=== PATIENT | male | born 1955 | race Caucasian/White ===

== ENCOUNTER 2020-09-02 12:54 | Inpatient (IN) | payer OTHER ==
[~2020-09-02] VITALS: Ht 177.8 cm; Wt 72.6 kg
[2020-09-02 13:15] LABS: BASOPHILS ABSOLUTE AUTO 0.06 K/mm3 (0.00-0.23); BASOPHILS PERCENT AUTO 1 % (0-2); EOSINOPHILS ABSOLUTE AUTO 0.05 K/mm3 (0.00-0.68); EOSINOPHILS PERCENT AUTO 0 % (0-6); Hematocrit 47.9 % (37.0-53.0); Hemoglobin 16.1 g/dL (13.5-17.5); IMMATURE GRAN ABSOLUTE AUTO 0.05 K/mm3 (0.00-0.10); IMMATURE GRAN PERCENT AUTO 0 % (0-1); LYMPHOCYTES ABSOLUTE AUTO 1.19 K/mm3 (0.84-5.20); LYMPHOCYTES PERCENT AUTO 10 % (21-46); MONOCYTES ABSOLUTE AUTO 1.11 K/mm3 (0.16-1.47); MONOCYTES PERCENT AUTO 10 % (4-13); Mean Corpuscular HGB 31.2 pg (26.0-34.0); Mean Corpuscular HGB Conc 33.6 g/dL (31.5-36.5); Mean Corpuscular Volume 93 fL (80-100); Mean Platelet Volume 11.9 fL (9.1-12.4); NEUTROPHILS ABSOLUTE AUTO 9.09 K/mm3 (1.96-9.15); NEUTROPHILS PERCENT AUTO 79 % (41-73); Platelet Count 219 K/mm3 (150-400); RDW Coefficient Variation 13.3 % (11.7-14.2); RDW Standard Deviation 45.6 fL (35.1-46.3); Red Blood Cell Count 5.16 M/mm3 (4.30-5.90); White Blood Cell Count 11.55 K/mm3 (4.00-11.30)
[2020-09-02] MEDS ORDERED: Acetaminophen325 M1 PO (13:20)
[2020-09-02] MEDS ORDERED: TAMS.4ER PO (13:21)
[2020-09-02] MEDS ORDERED: POLYETHYLENE G500 G1 PO (13:22)
[2020-09-02] MEDS ORDERED: LIDO700A20 TOP (13:22)
[2020-09-02 13:32] LABS: Source, Urine Clean Catch
[2020-09-02 13:41] LABS: Alanine Aminotransfer (ALT/SGP 31 U/L (12-78); Albumin, Blood 2.9 g/dL (3.4-5.0); Albumin/Globulin Ratio 0.6 (0.8-1.8); Alk Phos 104 U/L (50-136); Anion Gap 4 mmol/L (6-16); Aspartate Aminotrans (AST/SGOT 23 U/L (12-37); Bilirubin, Total 1.8 mg/dL (0.1-1.0); Blood Urea Nitrogen 29 mg/dL (8-24); Bun/Creatinine Ratio 44.6 (12.0-20.0); CO2, Blood 27 mmol/L (21-32); Calcium, Blood 9.3 mg/dL (8.5-10.1); Chloride, Blood 121 mmol/L (98-108); Creatinine, Blood 0.65 mg/dL (0.60-1.20); Ferritin, Serum 896 ng/mL (26-388); Globulin, Blood 4.6 g/dL (2.2-4.0); Glomerular Filtration Rate >60 (60-); Glucose, Blood 146 mg/dL (70-99); Potassium, Blood 4.1 mmol/L (3.5-5.5); Sodium, Blood 152 mmol/L (136-145); Total Protein, Blood 7.5 g/dL (6.4-8.2)
[2020-09-02 13:44] LABS: Appearance, Urine Hazy (Clear); Blood, Urine 4+ (Neg); Color, Urine Yellow (P-Yellow); Glucose Qualitative, Urine Neg (Neg); Ketones, Urine 2+ (Neg); Leukocyte Esterase, Urine 3+ (Neg); Nitrite, Urine Pos (Neg); Protein, Urine 3+ (Neg); Urobilinogen, Urine 2+ (Normal)
[2020-09-02 13:56] LABS: Bilirubin, Urine 1+ (Neg); Red Blood Cells, Urine TNTC /hpf (0-2); White Blood Cells, Urine TNTC /hpf (0-5)
[2020-09-02 13:57] LABS: Bacteria Many /hpf; Squamous Epithelial Cells Rare /hpf (Few)
[2020-09-02] MEDS ORDERED: PRED20 PO (15:29)
[2020-09-02 16:03] LABS: Influenza A, PCR NEGATIVE (NEGATIVE); Influenza B, PCR NEGATIVE (NEGATIVE); Resp Syncytial Virus, PCR NEGATIVE (NEGATIVE)
[2020-09-02 16:13] LABS: SARS-Cov-2 (COVID-19) PCR, MMC POSITIVE (NEGATIVE)
--- NOTE | 2020-09-02 18:36 | NUR ---
PT ARRIVED TO UNIT AT 181. PT IS UNRESPONSIVE AT THIS TIME. PT TURNED AND CHANGED AND SETTLED INTO BED. RAILS UP AND BED ALARM IN PLACE. PT IS VISIBLE FROM DOOR WINDOW. WILL CONTINUE TO MONITOR.
--- NOTE | 2020-09-02 20:20 | NUR ---
ASSUMPTION OF CARE. MADHU IS VERY QUITE BUT AWAKE. ORIENTED TO SELF ONLY. FOLLOWS DIRECTION WELL. UNABLE TO ANSWER QUESTIONS. VERY TIRED. FLUSHED IN THE FACE. SKIN WARM. VS WNL, AFEBRILE AT THIS TIME. ON RA SATS >90% OCCATIONAL COUGH, NO PRODUCTION. SKIN DOES HAVE OLD PRESSURE ULCER TO BOTTOM BUT HEALED, REST OF SKIN INTACT. HR TACHY IN THE LOW 100'S. IV IN LEFT HAND IS FOLLING OUT, REMOVED DRESSING AND FLUSHED WELL, NEW DRESSING APPLIED. ATTENDS DRY. BED ALARM IS ON. WILL START FLUIDS AND CONTINUE TO MONITOR.
[2020-09-03] MEDS ORDERED: Acetaminophen325 M1 PO (00:18)
[2020-09-03 04:59] LABS: BASOPHILS ABSOLUTE AUTO 0.05 K/mm3 (0.00-0.23); BASOPHILS PERCENT AUTO 1 % (0-2); EOSINOPHILS PERCENT AUTO 2 % (0-6); Hematocrit 46.5 % (37.0-53.0); Hemoglobin 14.8 g/dL (13.5-17.5); IMMATURE GRAN ABSOLUTE AUTO 0.02 K/mm3 (0.00-0.10); IMMATURE GRAN PERCENT AUTO 0 % (0-1); LYMPHOCYTES ABSOLUTE AUTO 1.18 K/mm3 (0.84-5.20); LYMPHOCYTES PERCENT AUTO 13 % (21-46); MONOCYTES ABSOLUTE AUTO 0.77 K/mm3 (0.16-1.47); MONOCYTES PERCENT AUTO 9 % (4-13); Mean Corpuscular HGB 30.3 pg (26.0-34.0); Mean Corpuscular HGB Conc 31.8 g/dL (31.5-36.5); Mean Corpuscular Volume 95 fL (80-100); NEUTROPHILS ABSOLUTE AUTO 6.86 K/mm3 (1.96-9.15); NEUTROPHILS PERCENT AUTO 76 % (41-73); Platelet Count 228 K/mm3 (150-400); RDW Coefficient Variation 13.6 % (11.7-14.2); RDW Standard Deviation 47.9 fL (35.1-46.3); Red Blood Cell Count 4.88 M/mm3 (4.30-5.90); White Blood Cell Count 9.08 K/mm3 (4.00-11.30)
[2020-09-03 05:15] LABS: Alanine Aminotransfer (ALT/SGP 27 U/L (12-78); Albumin, Blood 2.6 g/dL (3.4-5.0); Albumin/Globulin Ratio 0.6 (0.8-1.8); Alk Phos 94 U/L (50-136); Anion Gap 3 mmol/L (6-16); Aspartate Aminotrans (AST/SGOT 17 U/L (12-37); Bilirubin, Total 1.9 mg/dL (0.1-1.0); Blood Urea Nitrogen 24 mg/dL (8-24); Bun/Creatinine Ratio 41.9 (12.0-20.0); CO2, Blood 28 mmol/L (21-32); Calcium, Blood 8.8 mg/dL (8.5-10.1); Chloride, Blood 123 mmol/L (98-108); Creatinine, Blood 0.57 mg/dL (0.60-1.20); Globulin, Blood 4.3 g/dL (2.2-4.0); Glomerular Filtration Rate >60 (60-); Glucose, Blood 97 mg/dL (70-99); Magnesium, Blood 2.2 mg/dL (1.6-2.4); Potassium, Blood 3.4 mmol/L (3.5-5.5); Sodium, Blood 154 mmol/L (136-145); Total Protein, Blood 6.9 g/dL (6.4-8.2)
--- NOTE | 2020-09-03 05:58 | NUR ---
SHIFT SUMMARY: MADHU WAS ADMITTED YESTERDAY FOR SEPSIS UTI, COVID POSITIVE. HE IS ALERT AT TIMES WILL MUMBLE A FEW WORDS, DID ANSWER YES AND NO QUESTIONS SOME TIMES. MOST OF THE TIME HE JUST STARED OFF RAISING HIS ARMS UP IN THE AIR LIKE HE WAS GRABBING SOMETHING. HE HAS BEEN SLEEPING OFF AND ON AND WHEN HE DOES HE HAS 30 SECOND PAUSES IN HIS BREATHING, SLEEP APNEA BUT NOTHING IN HIS CHART ABOUT IT. HE DOES WAKE UP TO HIS NAME WHEN THIS OCCURS. INCONTIENT OF URINE, DARK YELLOW VERY STRONG ODOR. 1/2 NS STARTED, SODIUM 154 THIS AM. POTASSIUM DECREASING TO 3.4. LUNG SOUNDS ARE DIMINISHED. NO COHERENT ENOUGH TO USE THE CALL LIGHT SO BED ALARM IS ON. TACHYCARDIC IN 110'S ALL NIGHT BUT AFEBRILE. NO OTHER CHANGES TO REPORT THIS SHIFT.
--- NOTE | 2020-09-03 16:56 | NUR ---
SHIFT SUMMARY PT HAS BEEN AWAKE ALL SHIFT. PT ABLE TO SPEAK SHORT SENTENCES AND MUMBLES AT TIMES. PT STILL CONFUSED AND DOESN'T ANSWER QUESTIONS APPROPRIATELY. PT VOIDING WELL, INCONTINENT. PULLED IV OUT THIS AM AND NEW IV PLACED AND WRAPPED TO PROTECT LINE. IVF INFUSING WITHOUT DIFFICULTY. PT HAS HAD NO ACUTE CHANGES AT THIS TIME. CALL LIGHT IN REACH AND BED ALARM ON FOR SAFETY. WILL [id number] TO MONITOR.
--- NOTE | 2020-09-04 04:30 | NUR ---
SHIFT SUMMARY ASSUMED CARE OF PT AT 1900. PT IS A/OX1. PT HAS MUMBLED AND SLURRED SPEECH. HEART SOUNDS REGULAR, LUNG SOUNDS DIMINISHED. PT WAS INCONTIENT T/O THE NIGHT. PT HAS SMAL RED DOT ON COCCYX, PT ROTATED Q4 ON PILLOWS. PT HAD HARD TIME DRINKING FROM STRAW SO HE WAS GIVEN A SIPPY CUP, WHICH HE WAS ABLE TO CONTROL BETTER. PT MUSCLES ARE VERY STIFF AND PT HAS A HARD TIME MOVING HIS EXTRMITIES. NO ACUTE EVENTS DURING THE NIGHT. PT SLEPT T/O THE NIGHT. CALL LIGHT IN REACH, BED IN LOWEST POSTION.
[2020-09-04 05:14] LABS: BASOPHILS ABSOLUTE AUTO 0.04 K/mm3 (0.00-0.23); BASOPHILS PERCENT AUTO 1 % (0-2); EOSINOPHILS PERCENT AUTO 6 % (0-6); Hematocrit 39.8 % (37.0-53.0); Hemoglobin 12.9 g/dL (13.5-17.5); IMMATURE GRAN ABSOLUTE AUTO 0.02 K/mm3 (0.00-0.10); IMMATURE GRAN PERCENT AUTO 0 % (0-1); LYMPHOCYTES ABSOLUTE AUTO 1.04 K/mm3 (0.84-5.20); LYMPHOCYTES PERCENT AUTO 15 % (21-46); MONOCYTES ABSOLUTE AUTO 0.72 K/mm3 (0.16-1.47); MONOCYTES PERCENT AUTO 10 % (4-13); Mean Corpuscular HGB 30.7 pg (26.0-34.0); Mean Corpuscular HGB Conc 32.4 g/dL (31.5-36.5); Mean Corpuscular Volume 95 fL (80-100); NEUTROPHILS ABSOLUTE AUTO 4.85 K/mm3 (1.96-9.15); NEUTROPHILS PERCENT AUTO 69 % (41-73); Platelet Count 200 K/mm3 (150-400); RDW Coefficient Variation 13.3 % (11.7-14.2); RDW Standard Deviation 46.4 fL (35.1-46.3); White Blood Cell Count 7.07 K/mm3 (4.00-11.30)
[2020-09-04 05:45] LABS: Alanine Aminotransfer (ALT/SGP 21 U/L (12-78); Albumin, Blood 2.1 g/dL (3.4-5.0); Albumin/Globulin Ratio 0.6 (0.8-1.8); Alk Phos 74 U/L (50-136); Anion Gap 5 mmol/L (6-16); Aspartate Aminotrans (AST/SGOT 19 U/L (12-37); Bilirubin, Total 1.3 mg/dL (0.1-1.0); Blood Urea Nitrogen 18 mg/dL (8-24); Bun/Creatinine Ratio 38.4 (12.0-20.0); CO2, Blood 27 mmol/L (21-32); Calcium, Blood 8.3 mg/dL (8.5-10.1); Chloride, Blood 119 mmol/L (98-108); Creatinine, Blood 0.47 mg/dL (0.60-1.20); Globulin, Blood 3.8 g/dL (2.2-4.0); Glomerular Filtration Rate >60 (60-); Glucose, Blood 118 mg/dL (70-99); Potassium, Blood 3.4 mmol/L (3.5-5.5); Sodium, Blood 151 mmol/L (136-145); Total Protein, Blood 5.9 g/dL (6.4-8.2)
--- NOTE | 2020-09-04 14:56 | NUR ---
Case Conference Note Spoke with Bedside RN Kori and discussed case. Pt transport has arrived to transport Pt to [place]. Reviewed arron of care and discussed concerns. Called and spoke with Junior Technical Writer Rekha. Discussed case with Rekha reports being in contact with Pt's family. Pt's brother Clayton is CLARA. Clayton's number is listed on Pt's Facesheet. Supportive call to Clayton. Provided update and reviewed plan of care. Listened as Clayton reports Pt has been experiencing significant confusion since May. Pt has acute health events leading up to his current confusion. Answered question and offered therapeutic listening. Discussed Pt's code status with Clayton reporting Pt's wishes to be Full Code. Clayton expresses appreciation of call and is requesting for hospitalist to call him. Called Dr Man and relayed Clayton's request. Palliative Care will remain available.
--- NOTE | 2020-09-04 18:57 | NUR ---
SHIFT SUMMARY PT SLEPT MORE TODAY THAN YESTERDAY. NO ACUTE CHANGES. PT/OT TRIED WORKING WITH PT THIS AFTERNOON. IVF INFUSING PER MED ORDERS. CT OF HEAD DONE, SEE IMAGES. REPORT GIVEN TO LEONORA RN. BED ALARM ON FOR SAFETY.
[2020-09-05 04:52] LABS: BASOPHILS ABSOLUTE AUTO 0.05 K/mm3 (0.00-0.23); BASOPHILS PERCENT AUTO 1 % (0-2); EOSINOPHILS PERCENT AUTO 7 % (0-6); Hematocrit 39.5 % (37.0-53.0); IMMATURE GRAN ABSOLUTE AUTO 0.02 K/mm3 (0.00-0.10); IMMATURE GRAN PERCENT AUTO 0 % (0-1); LYMPHOCYTES ABSOLUTE AUTO 0.97 K/mm3 (0.84-5.20); LYMPHOCYTES PERCENT AUTO 16 % (21-46); MONOCYTES ABSOLUTE AUTO 0.63 K/mm3 (0.16-1.47); MONOCYTES PERCENT AUTO 11 % (4-13); Mean Corpuscular HGB 30.7 pg (26.0-34.0); Mean Corpuscular HGB Conc 32.9 g/dL (31.5-36.5); Mean Corpuscular Volume 93 fL (80-100); Mean Platelet Volume 11.7 fL (9.1-12.4); NEUTROPHILS ABSOLUTE AUTO 3.88 K/mm3 (1.96-9.15); NEUTROPHILS PERCENT AUTO 65 % (41-73); Platelet Count 208 K/mm3 (150-400); RDW Standard Deviation 44.1 fL (35.1-46.3); Red Blood Cell Count 4.24 M/mm3 (4.30-5.90); White Blood Cell Count 5.95 K/mm3 (4.00-11.30)
--- NOTE | 2020-09-05 05:31 | NUR ---
SHIFT SUMMARY ASSUMED CARE OF PT AT 1900. PT IS ALERT BUT NOT ORIENTED. HEART SOUNDS REUGLAR, LUNG SOUNDS DIMINISHED. PT WAS INCONTIENT T/O THE NIGHT. URINE IS VERY DARK AND FOUL SMELLING. PT HAD SMALL BM. NO ACUTE CHANGES THIS SHIFT. PT SLEPT T/O THE NIGHT. CALL LIGHT IN REACH, BED IN LOWEST POSITION.
[2020-09-05 05:38] LABS: Alanine Aminotransfer (ALT/SGP 20 U/L (12-78); Albumin, Blood 2.2 g/dL (3.4-5.0); Albumin/Globulin Ratio 0.6 (0.8-1.8); Alk Phos 76 U/L (50-136); Anion Gap 4 mmol/L (6-16); Aspartate Aminotrans (AST/SGOT 19 U/L (12-37); Blood Urea Nitrogen 9 mg/dL (8-24); Bun/Creatinine Ratio 19.8 (12.0-20.0); CO2, Blood 27 mmol/L (21-32); Calcium, Blood 8.5 mg/dL (8.5-10.1); Chloride, Blood 115 mmol/L (98-108); Creatinine, Blood 0.45 mg/dL (0.60-1.20); Globulin, Blood 3.8 g/dL (2.2-4.0); Glomerular Filtration Rate >60 (60-); Glucose, Blood 109 mg/dL (70-99); Potassium, Blood 3.6 mmol/L (3.5-5.5); Sodium, Blood 146 mmol/L (136-145)
--- NOTE | 2020-09-05 17:44 | NUR ---
Shift Summary A/O to self. 2p turn/reposition. Incontinent of bowel/bladder. Had 3 BM's, mixture of soft/loose. Speech evaluated, patient needs feeding assist. Appetite is fairly good. Speech remains incomprehensible. Meds crushed with applesauce. Records requested from [facility] is now in patient's chart. D5 1/2 NS 20 KCl @ 150 continuous d/t hypernatremia. Family has not called for updates. Does not call or follow directions appropriately. No new changes. WCTM and report to oncoming RN.
--- NOTE | 2020-09-05 19:20 | NUR ---
ASSUMED CARE RECEIVED REPORT FROM AISHA ARREDONDO. PT ASLEEP, IN NO ACUTE DISTRESS. CALL LIGHT, POSSESSIONS IN REACH, BED IN LOW POSITION WITH ALARMS ON. CONTINUE TO MONITOR.
[2020-09-06 04:40] LABS: BASOPHILS ABSOLUTE AUTO 0.06 K/mm3 (0.00-0.23); BASOPHILS PERCENT AUTO 1 % (0-2); EOSINOPHILS ABSOLUTE AUTO 0.38 K/mm3 (0.00-0.68); EOSINOPHILS PERCENT AUTO 7 % (0-6); Hematocrit 38.1 % (37.0-53.0); Hemoglobin 12.7 g/dL (13.5-17.5); IMMATURE GRAN ABSOLUTE AUTO 0.03 K/mm3 (0.00-0.10); IMMATURE GRAN PERCENT AUTO 1 % (0-1); LYMPHOCYTES ABSOLUTE AUTO 1.26 K/mm3 (0.84-5.20); LYMPHOCYTES PERCENT AUTO 24 % (21-46); MONOCYTES ABSOLUTE AUTO 0.61 K/mm3 (0.16-1.47); MONOCYTES PERCENT AUTO 12 % (4-13); Mean Corpuscular HGB 30.6 pg (26.0-34.0); Mean Corpuscular HGB Conc 33.3 g/dL (31.5-36.5); Mean Corpuscular Volume 92 fL (80-100); Mean Platelet Volume 11.3 fL (9.1-12.4); NEUTROPHILS ABSOLUTE AUTO 2.95 K/mm3 (1.96-9.15); NEUTROPHILS PERCENT AUTO 56 % (41-73); Platelet Count 231 K/mm3 (150-400); RDW Standard Deviation 43.6 fL (35.1-46.3); Red Blood Cell Count 4.15 M/mm3 (4.30-5.90); White Blood Cell Count 5.29 K/mm3 (4.00-11.30)
[2020-09-06 05:08] LABS: Anion Gap 6 mmol/L (6-16); Blood Urea Nitrogen 4 mg/dL (8-24); Bun/Creatinine Ratio 8.2 (12.0-20.0); CO2, Blood 26 mmol/L (21-32); Calcium, Blood 8.6 mg/dL (8.5-10.1); Chloride, Blood 113 mmol/L (98-108); Creatinine, Blood 0.49 mg/dL (0.60-1.20); Glomerular Filtration Rate >60 (60-); Glucose, Blood 104 mg/dL (70-99); Potassium, Blood 3.8 mmol/L (3.5-5.5); Sodium, Blood 145 mmol/L (136-145)
--- NOTE | 2020-09-06 06:29 | NUR ---
GOLF BALL WINDER SUMMARY PT LYING IN BED, APPEARS COMFORTABLE, NO ACUTE DISTRESS NOTED. PT CONTINUES TO MUMBLE NON-SENSICALLY, A&O TO SELF. VS REVIEWED,WNL. SATS STABLE ON RA. NO C/O PAIN/DISCOMFORT. NO ACUTE CHANGES IN CONDITION NOTED. CALL LIGHT, POSSESSIONS IN REACH, BED IN LOW POSITION WITH ALARMS ON. CONTINUE TO MONITOR, REPORT OFF TO DAY RN.
[2020-09-06 18:10] LABS: ANA DIRECT Negative (Negative)
--- NOTE | 2020-09-06 19:20 | NUR ---
ASSUMED CARE REPORT RECEIVED FROM AISHA HOLLIDAY. PT ASLEEP, IN NO ACUTE DISTRESS. NO ACUTE NEEDS ASSESSED AT THIS TIME. CALL LIGHT, POSSESSIONS IN REACH, BED IN LOW POSITION WITH ALARMS ON. CONTINUE TO MONITOR.
--- NOTE | 2020-09-06 19:31 | NUR ---
SHIFT SUMMARY: NO ACUTE CHANGES TO REPORT THIS SHIFT. PT ALERT; ORIENTED TO SELF; CALM AND COOPERATIVE WITH CARE. NO C/O PAIN THIS SHIFT. IV ABX & FLUIDS CONTINUING. FAMILY UPDATED WITH PLAN OF CARE TIS SHIFT. REPORT GIVEN TO ONCOMING RN.
[2020-09-07 04:39] LABS: BASOPHILS ABSOLUTE AUTO 0.09 K/mm3 (0.00-0.23); BASOPHILS PERCENT AUTO 2 % (0-2); EOSINOPHILS ABSOLUTE AUTO 0.44 K/mm3 (0.00-0.68); EOSINOPHILS PERCENT AUTO 8 % (0-6); Hematocrit 38.1 % (37.0-53.0); Hemoglobin 12.6 g/dL (13.5-17.5); IMMATURE GRAN ABSOLUTE AUTO 0.04 K/mm3 (0.00-0.10); IMMATURE GRAN PERCENT AUTO 1 % (0-1); LYMPHOCYTES ABSOLUTE AUTO 1.41 K/mm3 (0.84-5.20); LYMPHOCYTES PERCENT AUTO 27 % (21-46); MONOCYTES PERCENT AUTO 11 % (4-13); Mean Corpuscular HGB 30.6 pg (26.0-34.0); Mean Corpuscular HGB Conc 33.1 g/dL (31.5-36.5); Mean Corpuscular Volume 93 fL (80-100); Mean Platelet Volume 11.3 fL (9.1-12.4); NEUTROPHILS ABSOLUTE AUTO 2.71 K/mm3 (1.96-9.15); NEUTROPHILS PERCENT AUTO 51 % (41-73); Platelet Count 244 K/mm3 (150-400); RDW Coefficient Variation 13.1 % (11.7-14.2); Red Blood Cell Count 4.12 M/mm3 (4.30-5.90); White Blood Cell Count 5.29 K/mm3 (4.00-11.30)
[2020-09-07 04:57] LABS: Anion Gap 4 mmol/L (6-16); Blood Urea Nitrogen 3 mg/dL (8-24); Bun/Creatinine Ratio 6.7 (12.0-20.0); CO2, Blood 28 mmol/L (21-32); Calcium, Blood 8.8 mg/dL (8.5-10.1); Chloride, Blood 112 mmol/L (98-108); Creatinine, Blood 0.45 mg/dL (0.60-1.20); Glomerular Filtration Rate >60 (60-); Glucose, Blood 108 mg/dL (70-99); Potassium, Blood 3.8 mmol/L (3.5-5.5); Sodium, Blood 144 mmol/L (136-145)
--- NOTE | 2020-09-07 05:08 | NUR ---
INSTRUMENTATION CONTROLS ENGINEER SUMMARY PT ASLEEP, IN NO ACUTE DISTRESS. VS REVIEWED, WNL; O2 SATS REMAIN STABLE ON RA. NO ACUTE CHANGES IN CONDITION OVERNIGHT. CONTINUES TO MUMBLE NON-SENSICALLY. NO C/O PAIN. REPOSITIONED TOLERATED, KEPT CLEAN AND DRY. NO ACUTE NEEDS ASSESSED AT THIS TIME. IVF ONGOING. CALL LIGHT AND POSSESSIONS IN REACH, BED IN LOW POSITION WITH ALARMS ON. CONTINUE TO MONITOR, REPORT OFF TO DAY RN.
--- NOTE | 2020-09-07 19:24 | NUR ---
SHIFT SUMMARY: NO ACUTE EVENTS TO REPORT THIS SHIFT. PT ALERT; ORIENTED TO SELF; CALM AND COOPERATIVE WITH CARE. MEDICATED FOR GENERALIZED PAIN PER EMAR. PT ON BEDREST. IV FLUIDS & IV ABX CONTINUING. REPORT GIVEN TO ONCOMING RN.
--- NOTE | 2020-09-07 19:25 | NUR ---
ASSUMED CARE RECEIVED REPORT FROM AISHA HOLLIDAY. PT ASLEEP, IN NO ACUTE DISTRESS. APPEARS COMFORTABLE. NO ACUTE NEEDS ASSESSED AT THIS TIME. CALL LIGHT, POSSESSIONS IN REACH, BED IN LOW POSITION WITH ALARMS ON. CONTINUE TO MONITOR.
[2020-09-08 05:13] LABS: BASOPHILS ABSOLUTE AUTO 0.07 K/mm3 (0.00-0.23); BASOPHILS PERCENT AUTO 1 % (0-2); EOSINOPHILS ABSOLUTE AUTO 0.37 K/mm3 (0.00-0.68); EOSINOPHILS PERCENT AUTO 7 % (0-6); Hematocrit 38.4 % (37.0-53.0); Hemoglobin 12.8 g/dL (13.5-17.5); IMMATURE GRAN ABSOLUTE AUTO 0.06 K/mm3 (0.00-0.10); IMMATURE GRAN PERCENT AUTO 1 % (0-1); LYMPHOCYTES ABSOLUTE AUTO 1.42 K/mm3 (0.84-5.20); LYMPHOCYTES PERCENT AUTO 25 % (21-46); MONOCYTES ABSOLUTE AUTO 0.63 K/mm3 (0.16-1.47); MONOCYTES PERCENT AUTO 11 % (4-13); Mean Corpuscular HGB 30.7 pg (26.0-34.0); Mean Corpuscular HGB Conc 33.3 g/dL (31.5-36.5); Mean Corpuscular Volume 92 fL (80-100); Mean Platelet Volume 11.4 fL (9.1-12.4); NEUTROPHILS ABSOLUTE AUTO 3.05 K/mm3 (1.96-9.15); NEUTROPHILS PERCENT AUTO 54 % (41-73); Platelet Count 255 K/mm3 (150-400); RDW Coefficient Variation 13.2 % (11.7-14.2); RDW Standard Deviation 44.1 fL (35.1-46.3); Red Blood Cell Count 4.17 M/mm3 (4.30-5.90)
[2020-09-08 05:30] LABS: Anion Gap 7 mmol/L (6-16); Blood Urea Nitrogen 4 mg/dL (8-24); Bun/Creatinine Ratio 8.7 (12.0-20.0); CO2, Blood 27 mmol/L (21-32); Calcium, Blood 8.9 mg/dL (8.5-10.1); Chloride, Blood 111 mmol/L (98-108); Creatinine, Blood 0.46 mg/dL (0.60-1.20); Glomerular Filtration Rate >60 (60-); Glucose, Blood 103 mg/dL (70-99); Potassium, Blood 4.2 mmol/L (3.5-5.5); Sodium, Blood 145 mmol/L (136-145)
--- NOTE | 2020-09-08 06:40 | NUR ---
MANAGER SALES TRAINING SUMMARY PT ASLEEP, IN NO ACUTE DISTRESS. VS REVIEWED, WNL; O2 SATS REMAIN STABLE ON RA. NO ACUTE CHANGES IN CONDITION NOTED. HAS SLEPT ON AND OFF T/O NIGHT. NO ACUTE NEEDS ASSESSED AT THIS TIME. CALL LIGHT, POSSESSIONS IN REACH, BED IN LOW POSITION WITH ALARMS ON. CONTINUE TO MONITOR, REPORT OFF TO DAY RN.
--- NOTE | 2020-09-08 18:07 | NUR ---
SHIFT SUMMARY- PT IS ALERT, PLESANT AND COOPERATIVE. HE IS EATING AND DRINKING WELL THIS SHIFT WITH ASSISTANCE. HE IS INC OF URINE. HE PULLED HIS IV OUT THIS SHIFT. PT ATTEMPTED TO WORK WITH PT AND HE WAS UNABLE TO FOLLOW DIRECTIONS, SO HE WAS DISCHARGED FROM PT TODAY. HIS BED IS IN THE LOW POSITION AND CALL LIGHT IS WITHIN REACH.
--- NOTE | 2020-09-08 22:00 | NUR ---
ASSUMPTION OF CARE. ALERT TO SELF ONLY. MUMBLES MOST OF THE TIME, FOLLOWS SOME DIRECTION, DOES NOT HOLD COVERSATION, EXCEPT IN HIS HULLUCINATIONS. LUNG SOUNDS DIMINISHED, NO SIGN OF RESPIRTORY DISTRESS. HR SINUS. CHANGED ATTENDS, LININ, GOWN. ATTENDS SATURATED WITH YELLOW URINE. NO PAIN NOTED. TV TURNED ON FOR COMFORT. CALL LIGHT IS IN REACH BUT HE DOES NOT USE IT. BED ALARM IS ON. MEDS GIVEN IN APPLESAUCE CRUSHED, SWALLOWED WELL. WILL CONTINUE TO MONITOR.
[2020-09-09 04:57] LABS: BASOPHILS ABSOLUTE AUTO 0.09 K/mm3 (0.00-0.23); BASOPHILS PERCENT AUTO 1 % (0-2); EOSINOPHILS ABSOLUTE AUTO 0.34 K/mm3 (0.00-0.68); EOSINOPHILS PERCENT AUTO 5 % (0-6); Hematocrit 38.1 % (37.0-53.0); Hemoglobin 12.4 g/dL (13.5-17.5); IMMATURE GRAN ABSOLUTE AUTO 0.07 K/mm3 (0.00-0.10); IMMATURE GRAN PERCENT AUTO 1 % (0-1); LYMPHOCYTES ABSOLUTE AUTO 1.71 K/mm3 (0.84-5.20); LYMPHOCYTES PERCENT AUTO 23 % (21-46); MONOCYTES ABSOLUTE AUTO 0.84 K/mm3 (0.16-1.47); MONOCYTES PERCENT AUTO 11 % (4-13); Mean Corpuscular HGB 30.2 pg (26.0-34.0); Mean Corpuscular HGB Conc 32.5 g/dL (31.5-36.5); Mean Corpuscular Volume 93 fL (80-100); Mean Platelet Volume 10.6 fL (9.1-12.4); NEUTROPHILS ABSOLUTE AUTO 4.44 K/mm3 (1.96-9.15); NEUTROPHILS PERCENT AUTO 59 % (41-73); Platelet Count 301 K/mm3 (150-400); RDW Coefficient Variation 13.2 % (11.7-14.2); RDW Standard Deviation 44.9 fL (35.1-46.3); White Blood Cell Count 7.49 K/mm3 (4.00-11.30)
--- NOTE | 2020-09-09 05:41 | NUR ---
SHIFT SUMMARY: ALERT TO SELF ONLY, PLEASANTLY CONFUSED. DOES FOLLOW MINIMAL COMMANDS. INCONTIENT OF BOWEL AND URINE. MILD REDNESS TO COCCYX. HULLUCINATIONS VISUAL AND AUDITORY, TALKS TO SELF ALMOST ALL NIGHT. NO PAIN WAS NOTED OR SIGNS OF DISTRESS AT ANY TIME. TOOK MEDS IN APPLESAUCE WELL. REPOSITIONED Q2 HOURS. ATTENDS CHANGED PRN. AWAITING DISCHARGE BACK TO [facility]. BED ALARM IS ON, CALL LIGHT IS IN REACH BUT PATIENT UNABLE TO USE.
--- NOTE | 2020-09-09 18:27 | NUR ---
SHIFT SUMMARY- PT IS ALERT AND COOPERATIVE. HE IS NONSENSICAL IN HIS SPEECH. HE REQUIRES ASSISTANCE DURING MEALS. HE IS TAKING HIS MEDICATIONS CRUSHED IN APPLESAUSE. HE IS EATING AND DRINKING WELL. HIS DISCHARGE IS PENDING INSURANCE APPROVAL. HIS BED IS IN THE LOW POSITION AND CALL LIGHT IS WITHIN REACH.
--- NOTE | 2020-09-09 22:00 | NUR ---
ASSUMPTION OF CARE. AO TO SELF ONLY, VERY PLEASANT AND HAPPY. FOLLOWS SOME DIRECTION. LUNG SOUNDS DIMINISHED BUT HE DOES NOT ALWAYS TAKE A DEEP BREATH WHEN ASKED, NO COUGHING NOTED. APPEARS TO BE BACK TO BASELINE. NO PAIN OR DISCOMFORT. MED BM NOTED, CHANGED ATTENDS AND BACKSTEER, LOTION APPLIED TO ENTIRE BODY DUE TO VERY DRY FLACKY SKIN. ORAL CARE PROVIDED, AND ORAL MOISTURIZER APPLIED. HAD ENTREPRENEURIAL FINANCE PROFESSOR GIVE WATER WELL. MEDS GIVEN. BED ALARM IS ON.
--- NOTE | 2020-09-10 05:02 | NUR ---
SHIFT SUMMARY: RAIN HAD NO ACUTE CHANGES THIS SHIFT. SKIN IS GETTING VERY DRY AND FLACKY, APPLIED LOTION TO ENTIRE BODY. GAVE HIM A SIPPY CUP WHICH HE TRIED TO USE, BUT HE DOES HAVE TO BE OFFERED WATER EVERY TIME SOMEONE GOES INTO THE ROOM. CONFUSED AND DISORIENTED, BUT PLEASANT. VS WNL. BED ALARM REMAINS ON, CALL LIGHT IS IN REACH. AWAITING RETURN TO [facility].
[2020-09-10] MEDS ORDERED: DOCUZEN 8.6-501 EACH PO (14:10)
[2020-09-10] MEDS ORDERED: ONDA4ODT MM (14:10)
[2020-09-10] MEDS ORDERED: PANT40 PO (14:11)
[2020-09-10] MEDS ORDERED: VISBIOME 112.51 EACH PO (14:11)
--- NOTE | 2020-09-10 15:11 | NUR ---
REPORT GIVEN TO [facility] REPORT CALLED TOP AISHA HASKINS AT [facility] PRIOR TO DC
--- NOTE | 2020-09-10 17:00 | NUR ---
PT DISCHARGED PT TRANSFERED VIA WHEELCHAIR BACK TO [facility], PT WAS ALERT APPEARED TO BE BREATHING EASLY ON RA, REPORT WAS GIVEN TO THE RN AT [facility] , PT WAS ACCOMPANIED BY [facility]
== END 2020-09-10 16:55 | disposition home or self-care (01) | DRG 871 ==
LOC: ER 12:54 → MEDS 15:52 → ERHOLD 15:52 → MEDS 18:01
PROVIDERS: Emergency Medicine; Family Medicine; ADMIT Internal Medicine
DX: A41.51 Sepsis due to Escherichia coli [E. coli] (principal); G92 Toxic encephalopathy; U07.1 COVID-19; N39.0 Urinary tract infection, site not specified; E87.0 Hyperosmolality and hypernatremia; E44.1 Mild protein-calorie malnutrition; G93.49 Other encephalopathy; E87.6 Hypokalemia
CPT/HCPCS: 0241U; 36415; 51701; 70450; 71045; 80048; 80053; 81001; 82607; 82728; 82746; 83605; 83735; 84443; 85025; 85379; 85651; 86038; 86140; 87040; 87077; 87086; 87186; 92526; 92610; 96361-59; 96365-59; 97163; 97166; 97530; 97535; 99285-25; A9270; J0696; J1650; J7030; J7042

== ENCOUNTER 2020-10-26 19:00 | Emergency (ER) | payer OTHER ==
[~2020-10-26] VITALS: Ht 170.2 cm; Wt 72.6 kg
[~2020-10-26 19:00] MED LIST: Acetaminophen325 M1 PO; DOCUZEN 8.6-501 EACH PO; LIDO700A20 TOP; ONDA4ODT MM; PANT40 PO; POLYETHYLENE G500 G1 PO; PRED20 PO; TAMS.4ER PO; VISBIOME 112.51 EACH PO
== END 2020-10-26 22:45 | disposition home or self-care (01) ==
LOC: ER 19:00
DX: M25.512 Pain in left shoulder (principal); K21.9 Gastro-esophageal reflux disease without esophagitis; Z88.8 Allergy status to other drugs, medicaments and biological substances; Z79.899 Other long term (current) drug therapy
CPT/HCPCS: 73030; 99284-25

== ENCOUNTER 2020-11-19 21:15 | Emergency (ER) | payer OTHER ==
[~2020-11-19] VITALS: Ht 182.9 cm; Wt 72.6 kg
== END 2020-11-20 01:09 | disposition home or self-care (01) ==
LOC: ER 21:15
DX: T84.028A Dislocation of other internal joint prosthesis, initial encounter (principal); S70.02XA Contusion of left hip, initial encounter; K21.9 Gastro-esophageal reflux disease without esophagitis; Z79.899 Other long term (current) drug therapy; Z88.8 Allergy status to other drugs, medicaments and biological substances; W05.0XXA Fall from non-moving wheelchair, initial encounter
CPT/HCPCS: 23650; 29105; 73030; 73200; 73502; 99284-25